=== PATIENT | male | born 1980 ===

== ENCOUNTER 2016-12-22 02:28 | Inpatient (IN) | payer SELFPAY ==
[2016-12-22 03:01] LABS: Urine Bilirubin Negative (Negative); Urine Glucose Negative (Negative); Urine Nitrite Negative (Negative)
[2016-12-22 03:02] LABS: Hematocrit 48 % (42-52); Mean Corpuscular HGB Conc 33 g/dl (31-36); Mean Corpuscular Hemoglobin 28 pg (27-31); Mean Corpuscular Volume 83 fL (80-94); Mean Platelet Volume 10 um3 (7.4-10.4); Red Blood Count 5.79 10^6/ul (4.0-5.4); Red Cell Distribution Width 15 % (10.5-15); White Blood Count 16.9 10^3/ul (3.5-10.8)
[2016-12-22 03:03] LABS: Comments Flag Yes
[2016-12-22 03:04] LABS: Add Diff/Slide Review? Slide Review Added
[2016-12-22 03:14] LABS: ALT 114 U/L (7-52); AST 46 U/L (13-39); Albumin 4.8 g/dL (3.2-5.2); Alkaline Phosphatase 95 U/L (34-104); Anion Gap 12 mmol/L (2-11); BUN/Creatinine Ratio 10.1 (8-20); Blood Urea Nitrogen 11 mg/dL (6-24); CO2 Carbon Dioxide 19 mmol/L (22-32); Calcium 9.3 mg/dL (8.6-10.3); Chloride 104 mmol/L (101-111); Globulin 3.3 g/dL (2-4); Glucose 115 mg/dL (70-100); Potassium 3.4 mmol/L (3.5-5.0); Sodium 135 mmol/L (133-145); Total Protein 8.1 g/dL (6.4-8.9)
[2016-12-22 03:15] LABS: Benzodiazepine Urine Screen None Detected (None Detect)
[2016-12-22 03:27] LABS: Acetaminophen < 15 mcg/mL; Alcohol 263 mg/dL (<10); Salicylate < 2.50 mg/dL (<30)
[2016-12-22 03:37] LABS: TSH (Thyroid Stimulating Horm) 1.33 mcIU/mL (0.34-5.60)
--- NOTE | 2016-12-22 06:41 | ED ---
Geoffrey Multani Billy, scribed for Shakir Peterson MD on 12/22/16 at 0612 . Psychiatric Complaint - HPI Summary HPI Summary: 36 year-old male coming to [facility] for a voluntary MHE. Patient reports vague suicidal ideation without any definite plans. He presents to the ED with clear signs of EtOH intoxication, and he states that he wants to speak to somebody for help. - History Of Current Complaint Chief Complaint: EDMentalHealth Time Seen by Provider: 12/22/16 03:04 Hx Obtained From: Patient Onset/Duration: Gradual Onset Timing: Constant Severity Initially: Moderate Severity Currently: Moderate Character: Depressed Aggravating Factor(s): Alcohol Use Alleviating Factor(s): Nothing Associated Signs And Symptoms: Positive: Negative Has Suicidal: Reports: Thoughts - Allergies/Home Medications Allergies/Adverse Reactions: Allergies Allergy/AdvReac Type Severity Reaction Status Date / Time No Known Allergies Allergy Verified 06/06/13 23:54 PMH/Surg Hx/FS Hx/Imm Hx Musculoskeletal History: Reports: Hx Back Problems - x1 year approximately, "twinge" Psychiatric History: Reports: Hx Anxiety, Hx Substance Abuse, Other Psychiatric Issues/Disorders - inpatient substance abuse treatment Denies: Hx Eating Disorder, Hx of Violent Episodes Against Others - Immunization History Date of Tetanus Vaccine: unknown Infectious Disease History: No Infectious Disease History: Denies: Traveled Outside the [place] in Last 30 Days - Family History Family History: Aunt with unclear mental health illness. - Social History Alcohol Use: Daily Alcohol Amount: recently Substance Use Type: Reports: Cocaine, Marijuana Substance Use Comment - Amount & Last Used: recently per pt Smoking Status (MU): Heavy Every Day Tobacco Smoker Review of Systems Neurological: Other - EtOH Psychological: Other - SI Positive: Depressed All Other Systems Reviewed And Are Negative: Yes Physical Exam Triage Information Reviewed: Yes Vital Signs On Initial Exam: Initial Vitals Temp Pulse Resp BP Pulse Ox 98.3 F 129 32 174/107 95 12/22/16 02:30 12/22/16 02:30 12/22/16 02:30 12/22/16 02:30 12/22/16 02:30 Vital Signs Reviewed: Yes Appearance: Positive: Well-Appearing, No Pain Distress Skin: Positive: Warm Head/Face: Positive: Normal Head/Face Inspection Eyes: Positive: NORMA ENT: Positive: Hearing grossly normal Neck: Positive: Supple Respiratory/Lung Sounds: Positive: Clear to Auscultation, Breath Sounds Present Cardiovascular: Positive: RRR Abdomen Description: Positive: Nontender, Soft Musculoskeletal: Positive: Strength/ROM Intact Neurological: Positive: Alert, Oriented to Person Place, Time - Lexx Coma Scale Coma Scale Total: 15 Diagnostics - Vital Signs Vital Signs Temp Pulse Resp BP Pulse Ox 12/22/16 02:54 97.7 F 129 23 174/107 96 12/22/16 02:30 98.3 F 129 32 174/107 95 - Laboratory Lab Results: Lab Results 12/22/16 12/22/16 12/22/16 Range/Units 02:50 02:50 02:50 WBC 16.9 H (3.5-10.8) 10^3/ul RBC 5.79 H (4.0-5.4) 10^6/ul Hgb 16.0 (14.0-18.0) g/dl Hct 48 (42-52) % MCV 83 (80-94) fL MCH 28 (27-31) pg MCHC 33 (31-36) g/dl RDW 15 (10.5-15) % Plt Count 254 (150-450) 10^3/ul MPV 10 (7.4-10.4) um3 Neut % (Auto) 80.2 (38-83) % Lymph % (Auto) 14.4 L (25-47) % Baxter % (Auto) 3.8 (1-9) % Eos % (Auto) 0.1 (0-6) % Baso % (Auto) 1.5 (0-2) % Absolute Neuts (auto) 13.6 H (1.5-7.7) 10^3/ul Absolute Lymphs (auto) 2.4 (1.0-4.8) 10^3/ul Absolute Monos (auto) 0.6 (0-0.8) 10^3/ul Absolute Eos (auto) 0 (0-0.6) 10^3/ul Absolute Basos (auto) 0.3 H (0-0.2) 10^3/ul Absolute Nucleated RBC 0 10^3/ul Nucleated RBC % 0 Sodium 135 (133-145) mmol/L Potassium 3.4 L (3.5-5.0) mmol/L Chloride 104 (101-111) mmol/L Carbon Dioxide 19 L (22-32) mmol/L Anion Gap 12 H (2-11) mmol/L BUN 11 (6-24) mg/dL Creatinine 1.09 (0.67-1.17) mg/dL Est GFR ( Amer) 99.0 (>60) Est GFR (Non-Af Amer) 77.0 (>60) BUN/Creatinine Ratio 10.1 (8-20) Glucose 115 H (70-100) mg/dL Calcium 9.3 (8.6-10.3) mg/dL Total Bilirubin 0.30 (0.2-1.0) mg/dL AST 46 H (13-39) U/L ALT 114 H (7-52) U/L Alkaline Phosphatase 95 (34-104) U/L Total Protein 8.1 (6.4-8.9) g/dL Albumin 4.8 (3.2-5.2) g/dL Globulin 3.3 (2-4) g/dL Albumin/Globulin Ratio 1.5 (1-3) TSH 1.33 (0.34-5.60) mcIU/mL Urine Color Colorless Urine Appearance Clear Urine pH 6.0 (5-9) Ur Specific [place] 1.001 L (1.010-1.030) Urine Protein Negative (Negative) Urine Ketones Negative (Negative) Urine Blood Negative (Negative) Urine Nitrate Negative (Negative) Urine Bilirubin Negative (Negative) Urine Urobilinogen Negative (Negative) Ur Leukocyte Esterase Negative (Negative) Urine Glucose Negative (Negative) Salicylates < 2.50 (<30) mg/dL Urine Opiates Screen (None Detect) Acetaminophen < 15 mcg/mL Ur Barbiturates Screen (None Detect) Ur Phencyclidine Scrn (None Detect) Ur Amphetamines Screen (None Detect) U Benzodiazepines Scrn (None Detect) Urine Cocaine Screen (None Detect) U Cannabinoids Screen (None Detect) Serum Alcohol 263 H (<10) mg/dL 12/22/16 Range/Units 02:50 WBC (3.5-10.8) 10^3/ul RBC (4.0-5.4) 10^6/ul Hgb (14.0-18.0) g/dl Hct (42-52) % MCV (80-94) fL MCH (27-31) pg MCHC (31-36) g/dl RDW (10.5-15) % Plt Count (150-450) 10^3/ul MPV (7.4-10.4) um3 Neut % (Auto) (38-83) % Lymph % (Auto) (25-47) % Baxter % (Auto) (1-9) % Eos % (Auto) (0-6) % Baso % (Auto) (0-2) % Absolute Neuts (auto) (1.5-7.7) 10^3/ul Absolute Lymphs (auto) (1.0-4.8) 10^3/ul Absolute Monos (auto) (0-0.8) 10^3/ul Absolute Eos (auto) (0-0.6) 10^3/ul Absolute Basos (auto) (0-0.2) 10^3/ul Absolute Nucleated RBC 10^3/ul Nucleated RBC % Sodium (133-145) mmol/L Potassium (3.5-5.0) mmol/L Chloride (101-111) mmol/L Carbon Dioxide (22-32) mmol/L Anion Gap (2-11) mmol/L BUN (6-24) mg/dL Creatinine (0.67-1.17) mg/dL Est GFR ( Amer) (>60) Est GFR (Non-Af Amer) (>60) BUN/Creatinine Ratio (8-20) Glucose (70-100) mg/dL Calcium (8.6-10.3) mg/dL Total Bilirubin (0.2-1.0) mg/dL AST (13-39) U/L ALT (7-52) U/L Alkaline Phosphatase (34-104) U/L Total Protein (6.4-8.9) g/dL Albumin (3.2-5.2) g/dL Globulin (2-4) g/dL Albumin/Globulin Ratio (1-3) TSH (0.34-5.60) mcIU/mL Urine Color Urine Appearance Urine pH (5-9) Ur Specific [place]ram (1.010-1.030) Urine Protein (Negative) Urine Ketones (Negative) Urine Blood (Negative) Urine Nitrate (Negative) Urine Bilirubin (Negative) Urine Urobilinogen (Negative) Ur Leukocyte Esterase (Negative) Urine Glucose (Negative) Salicylates (<30) mg/dL Urine Opiates Screen None detected (None Detect) Acetaminophen mcg/mL Ur Barbiturates Screen None detected (None Detect) Ur Phencyclidine Scrn None detected (None Detect) Ur Amphetamines Screen None detected (None Detect) U Benzodiazepines Scrn None detected (None Detect) Urine Cocaine Screen None detected (None Detect) U Cannabinoids Screen None detected (None Detect) Serum Alcohol (<10) mg/dL Result Diagrams: 12/22/16 02:50 12/22/16 02:50 Lab Statement: Any lab studies that have been ordered have been reviewed, and results considered in the medical decision making process. Course/Dx - Differential Dx/Clinical Impression Provider Diagnosis: Suicidal ideations - Physician Notifications Instructed by Provider To: Admit As Inpatient Discharge - Discharge Plan Condition: Fair Disposition: ADMITTED TO [facility] documentation as recorded by the Geoffrey oswald Billy accurately reflects the service I personally performed and the decisions made by me, Shakir Peterson MD.
[2016-12-23] MEDS ORDERED: Nicotine Inhaler* 10 MG AMP INH PRN (12:45)
[2016-12-23] MEDS ORDERED: diPHENhydraMINE PO* 50 MG PO PRN (12:46)
--- NOTE | 2016-12-24 10:04 | RAD ---
INDICATION: Right middle finger trauma. TECHNIQUE: 3 views of the right middle finger were obtained. FINDINGS: There is mild extension at the proximal interphalangeal joint and flexion at the distal interphalangeal joint. No fracture is seen. Joint spaces appear maintained. IMPRESSION: SWAN NECK DEFORMITY, NO FRACTURE IS SEEN.
--- NOTE | 2016-12-24 10:24 | HP ---
DATE OF ADMISSION: 12/23/16 IDENTIFYING DATA: Marcio Sloan is a 36-year-old domiciled employed male with a history of prior psychiatric hospitalization, alcohol use disorder, remote history of self-injury. He is admitted to the psychiatric unit on a voluntary basis after being brought to the hospital emergency room by ambulance after he told a police liaison he was feeling suicidal. HISTORY OF PRESENT ILLNESS: Marcio was last admitted to our psychiatric unit in May 2013. He was referred for follow up at [facility]. He reports "not much" in the way of follow up. He said he felt well after the hospitalization and dropped out of treatment. He stopped taking medication (Zoloft), and was sober for about six months. He said that alcohol problems have been "on and off" since then. He denies having any interventions. He said the consequences have included "legal problems" after he was frustrated that he couldn't purchase alcohol from a store after 1 o'clock and stole it instead. He denies symptoms of a major depressive episode. Specifically, he denies unremitting sad mood, anhedonia, persistent helplessness or hopelessness, or any experiences he identifies as wishes. He reports persistent sleep quality with poor hygiene, taking naps, and says his energy is "sub par." He said one of the reasons he expressed suicidal thoughts to the police liaison was that he wanted to "get out of police contact." In the ER he was a little guarded, and denied ongoing suicidal thoughts. Collateral information that came from his family was supportive of his safety outside the hospital setting. He denies manic symptoms. He denies psychotic symptoms. He denies any violence or violent ideation. He denies anxiety syndromes. He reports drinking alcohol several times a week, up to 15 beers each time, to intoxication and with negative subjective consequences. He denies periods of shakiness when not drinking, or history of serious withdrawal symptoms. He reports using marijuana occasionally, and denies the use of other illicit substances. He said he was happy he was admitted to the psychiatric unit, but is hopeful for a brief stay both because he's not insured and, based on his subjective needs, he would like to spend another day in the hospital. He denied new health problems other than having injured his right middle finger at a birthday alliance party. He said he self-treated and put a splint on. He was ambivalent about getting x-rays based on the concern of cost, but agreed that it was appropriate. He recognized his main problem as drinking and, after review of his options, elected a trial of Antabuse after we reviewed the side effects and safety profile of that medication. He was somewhat ambivalent about accepting referrals for outpatient mental health or substance counseling follow up, preferring to do it on his own but "with Antabuse." PREVIOUS PSYCHIATRIC HISTORY: One hospitalization at our facility in 2012 where he presented with depressive symptoms in the setting of uncontrolled alcohol use. He's had little outpatient mental health follow up. He was referred to [facility] and apparently made contact with them again briefly a couple of years ago. Prior to his first hospitalization here, he had not interacted with the mental health system. At age 14, he contemplated suicide and did not act on it. He had an instance of self-injury in the remote past in which he cut his left arm in the setting of emotional stress of a break-up with a girlfriend. He denies a history of violence but has been in some fights when drinking. He denies a history of manic or psychotic symptoms. He reported meeting his developmental milestones on time. He denied a learning disorder or childhood behavioral difficulties. He denies anxiety syndromes and generally gets anxious under situational problems. MEDICAL HISTORY: No chronic illnesses, recent right middle finger trauma. OUTPATIENT MEDICATIONS: None. ALLERGIES: No known drug allergies. FAMILY PSYCHIATRIC HISTORY: An aunt has an unclear mental illness. He denied suicidal behavior in the family. ABUSE HISTORY: Denied. LEGAL HISTORY: Arrested for trespassing in [place] while intoxicated and for taking alcohol without paying in the last few years. SUBSTANCE USE HISTORY: Alcohol has been a chronic problem. He was in rehab at [facility] in his 20s, and attained five years of sobriety. Consequences have included legal problems, isolation, fights. He denies any history of mandeep medically serious withdrawal, DTs or seizures. He reports occasional marijuana use and denies the use of other illicit substances. He reports between a pack a week or a pack a day of smoking cigarettes. SOCIAL HISTORY: He is from the [facility]. He resides alone in the vicinity of his sister and mother. His brother is also involved in his life. His parents are . 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 He has reported having some friends. He identifies as heterosexual, and previously was sexually active in a way that was satisfactory for him. He has no children of his own. Leisure activities include interest in sports and playing video games and reading. MENTAL STATUS EXAMINATION: Heavy-set, middle-aged, male who is fairly well-kempt in hospital clothing. He has normal psychomotor activity. He 's pleasant, polite and cooperative. He maintains good eye contact. Speech is spontaneous and unpressured. Mood is described as "okay." Affect is mildly dysphoric; it's stable and doesn't really brighten. Thought process is coherent. Thought content is negative for current suicidal, homicidal or paranoid ideation. Sensorium is clear. He's alert and oriented x3. Insight and judgment is fair to good. Impulse control is intact. PHYSICAL ASSESSMENT: Vital signs - temperature 98.3, blood pressure 133/96, pulse 77, respiratory rate 16. ADMISSION LABORATORY STUDIES: CBC - WBC 16.9, RBC 5.79, 14.4% lymphocytes, 13.6 absolute neutrophils, 0.3 absolute basophils. Comprehensive panel - potassium 3.4, carbon dioxide 19, anion gap 12, glucose 115, AST 46, ALT 114. Urinalysis - specific gravity 1.001. Toxicology screen - alcohol level of 263, negative for Tylenol or salicylates. Urine drug screen negative. REVIEW OF SYSTEMS: Negative for seizures, neurologic symptoms, respiratory difficulty, chest pain, syncope, gastrointestinal distress, elimination symptoms , or skin problems. Musculoskeletal - reports a recent right middle finger trauma which he's evaluated as either a fracture of dislocation (did not seek medical attention), and for which he put on a splint. PHYSICAL EXAM: Declined exam citing lack of subjective need. This is a reasonable refusal in a healthy person. He has right middle finger trauma that merits an x- ray, and has liver function tests consistent with his use of alcohol. He's been medically cleared for psychiatric hospitalization. Only follow up required is the x-ray. CLINICAL SUMMARY: Second psychiatric hospitalization for a 36-year-old male with a history of chronic alcohol use disorder and mental health sequelae with a distant history of self-injury and a [id number] of depression. He presented in crisis having interacted with law enforcement and expressed suicidal thoughts. There appears to be no subacute suicidal behavior or ideation, nor does he appear to be in a major mood episode. It sounds like he gets dysphoric at times when drinking, and he identifies alcohol use as an uncontrolled problem at this time. He merits psychiatric hospitalization for stabilization which is already underway. I do anticipate a brief hospitalization in keeping with his preference is going to be appropriate, and am planning for his release 12/25. ADMISSION DIAGNOSIS: Alcohol use disorder with induced mood symptoms, onset during intoxication. TREATMENT PLAN: Admit to psychiatric unit on a voluntary basis. Code status is full. Safety checks are 15-minute intervals and can advance to 30-minute intervals at this time. Initiate comprehensive group milieu and individual psychotherapeutic supports. Medication management will involve treatment with Disulfiram for alcohol use disorder starting now. Estimated length of stay is two days. Further evaluation includes x-ray of the right middle finger. Patient's strengths are his intact intellectual functioning, good baseline health, supportive family. Discharge planning will involved effort to refer to appropriate after care, although it appears that the patient may decline the referrals. [id number]/[facility] #: [id number] LUIS ANGEL
[2016-12-24] MEDS: Disulfiram TAB* 250 MG PO SCH (10:27)
--- NOTE | 2016-12-24 11:24 | PN ---
Progress Note - Progress Note Note: R middle finger Xray result: no fracture, Lynx neck deformity no acute intervention needed.
[2016-12-25 08:03] VITALS: BP 137/95
[2016-12-25] MEDS: Disulfiram TAB* 250 MG PO SCH (12:02)
--- NOTE | 2016-12-25 14:09 | DS ---
Subjective - Subjective Service Types: 88199 Hosp CO Day Mgmt simple under 30 min Discharge Date: 12/25/16 Subjective: Marcio continues to report that his SI was only brief and without plan under the influence of alcohol. He requests discharge from this voluntary admission. It had been the plan of Dr Veliz, for whom I am covering care of Marcio, to discharge Marcio from the hospital today. After meeting with Marcio and learning that he has no dangerous intent or plan and a clear plan to establish and maintain sobriety, I agree with this plan to discharge today. Marcio has no physical complaints. He had no withdrawal symptoms from his brief alcohol binge. Objective - Appearance Appearance: Healthy Appearing Dysmorphic Features: No Hygiene: Normal Grooming: Well Kept - Behavior Psychomotor Activities: Normal Exhibits Abnormal Movement: No - Attitude and Relatedness Attitude and Relatedness: Well Related Eye Contact: Good - Speech Quality: Unpressured Latencies: Normal Quantity: Appropriate - Mood Patient's Decription of Mood: "Good" - "Positive" - Affect Observed Affect: Good Affect Consistent with: Euthymia - Thought Process Patient's Thought Process: Coherent, Goal Directed Thought Content: No Passive Wish, No Suicidal Planning, No Homicidal Ideation, No Paranoid Ideation - Sensorium Experiencing Hallucinations: No, Sensorium is Clear Type of Hallucinations: Visual: No, Auditory: No, Command: No - Level of Consciousness Level of Consciousness: Alert Orientation: Yes Intact, Yes Orientated to Time, Yes Orientated to Place, Yes Orientated to Person - Impulse Control Impulse Control: Intact - Insight and Judgement Insight and Judgement: Fair - Group Participation Particating in Group Activities: Yes - Medication Management Medication Management Adherence: Yes Treatment Course & Assessment Clinical Course & Impression: Marcio is a 36 year-old man admitted for safety, assessment and treatment after stating SI that he might want to jump into a river when speaking with police at bar closing time in [facility]. He has since been clear in his report that he had no true intent or plan to harm himself when making that statement. He has identified alcohol use disorder as a primary issue, but he has declined referral to rehab programs, stating that he does better with AA. He has started Antabuse. Marcio made good use of the therapeutic milieu and groups. He was med compliant. He has been pleasant and collaborative throughout his brief hospitalization. Marcio is cleared for discharge, assessed as at no acutely increased risk of harm to self or others and capable of adequate self-care to avoid harm. He has requested referral to [facility] for followup care. Merits Inpatient Hospitalization: No Clear for Discharge: Adequate Clinical Respons, Acceptable Safety Profile, Low Utility of Inpt Care Inpatient DSM-IV Dx: Alcohol use disorder with induced mood symptoms, onset during intoxication - Rome II MR and Personality Disorder: deferred - Rome III Medical Illness: Recent R middle finger trauma - Rome IV Stressors: consequences of alcohol use Family: supportive Primary Support Group: family - Rome V ADW-[id number]-[id number]: 70 Estimate of Highest-Past Year: 70 Discharge Planning - Discharge Planning Discharge Plan: Outpatient Follow Up Outpatient Program: [facility] Recommendations for Continuing Care: Medication Management, Psychotherapy Medications: Disulfiram (Antabuse Tab*) 250 mg PO DAILY ELSIE Last Admin: 12/25/16 12:02 Dose: 250 mg, #30, 0 refills Nicotine gum, 2 mg/piece, q2h prn cravings, #180, 0 refills. Discharge Planning: Prescriptions provided for discharge [x] Yes [] No Follow up care details as per social work arrangements. Patient response to discharge plan: [x] eager for discharge [x] agreeable with discharge plan [] ambivalent about discharge [] disagrees with discharge today
== END 2016-12-25 14:30 | disposition home or self-care (01) | DRG 897 ==
LOC: ED 02:28 → BSU 12-23 12:45
PROVIDERS: ADMIT Psychiatry & Neurology Psychiatry; ATTEND Psychiatry & Neurology Psychiatry
DX: F10.14 Alcohol abuse with alcohol-induced mood disorder (principal); R45.851 Suicidal ideations; Y90.8 Blood alcohol level of 240 mg/100 ml or more; F10.129 Alcohol abuse with intoxication, unspecified; F17.210 Nicotine dependence, cigarettes, uncomplicated; S69.91XA Unspecified injury of right wrist, hand and finger(s), initial encounter; X58.XXXA Exposure to other specified factors, initial encounter; Y92.9 Unspecified place or not applicable
CPT/HCPCS: 36415; 73140; 80053; 80307; 80320; 80329; 81003; 84443; 85025; 99222; 99238; A9270-GY; G0480

== ENCOUNTER 2018-05-19 02:02 | Emergency (ER) | payer SELFPAY ==
--- NOTE | 2018-05-19 03:03 | ED ---
Substance Abuse/Use - HPI Summary HPI Summary: Complete HPI unobtainable due to level 5 caveat of substance abuse. Pt is 38 y/ o M BIBA to [facility] due to substance abuse. He called the police because he believed he had a warrant out for his arrest in [place]. When they arrived he told them he had to go to the hospital because of cocaine and alcohol abuse. Denies having any pain. - History Of Current Complaint Chief Complaint: EDSubstanceAbuse Stated Complaint: 2208 Time Seen by Provider: 05/19/18 02:32 Hx Obtained From: Patient Hx From Patient Unobtainable Due To: Altered Mental Status Ingestion History: Type/Name Of Drug - Cocaine, ETOH Aggravating Factor(s): Nothing Alleviating Factor(s): Nothing - Allergies/Home Medications Allergies/Adverse Reactions: Allergies Allergy/AdvReac Type Severity Reaction Status Date / Time No Known Allergies Allergy Verified 05/19/18 02:12 Home Medications: Home Medications NK [No Home Medications Reported] 05/19/18 [History Confirmed 05/19/18] PMH/Surg Hx/FS Hx/Imm Hx Musculoskeletal History: Reports: Hx Back Problems - x1 year approximately, "twinge" Sensory History: Denies: Hx Contacts or Glasses, Hx Hearing Aid Opthamlomology History: Denies: Hx Contacts or Glasses Psychiatric History: Reports: Hx Anxiety, Hx Inpatient Treatment, Hx Community Mental Health Tx, Hx Substance Abuse, Other Psychiatric Issues/Disorders - inpatient substance abuse treatment Denies: Hx Eating Disorder, Hx of Violent Episodes Against Others - Immunization History Date of Tetanus Vaccine: unknown Infectious Disease History: No Infectious Disease History: Denies: Traveled Outside the [place] in Last 30 Days - Family History Known Family History: Positive: Other - Aunt with unclear mental health illness - Social History Alcohol Use: Daily Alcohol Amount: recently Substance Use Type: Reports: Cocaine, Marijuana Substance Use Comment - Amount & Last Used: recently per pt Smoking Status (MU): Heavy Every Day Tobacco Smoker Type: Cigarettes Review of Systems - ROS Summary Review of Systems Summary: Complete ROS unobtainable due to level 5 caveat of altered mental status due to substance abuse. All Other Systems Reviewed And Are Negative: Yes Physical Exam - Summary Physical Exam Summary: Appearance: Well-appearing, Well-nourished, lying in bed comfortable Skin: Warm, dry, no obvious rash Eyes: sclera anicteric, no conjunctival pallor ENT: mucous membranes moist Neck: deferred Respiratory: No signs of respiratory distress Cardiovascular: Appears well perfused, pulses are nml Abdomen: deferred Musculoskeletal: Moving all 4 extremities without obvious discomfort Neurological: Awake and alert, mentation is normal, speech is fluent and appropriate Psychiatric: affect is normal, does not appear anxious or depressed Triage Information Reviewed: Yes Vital Signs On Initial Exam: Initial Vitals Temp Pulse Resp BP Pulse Ox 98.1 F 123 20 142/118 95 05/19/18 02:07 05/19/18 02:07 05/19/18 02:07 05/19/18 02:07 05/19/18 02:07 Vital Signs Reviewed: Yes Diagnostics - Vital Signs Vital Signs Temp Pulse Resp BP Pulse Ox 05/19/18 02:07 98.1 F 123 20 142/118 95 - Laboratory Result Diagrams: 05/19/18 03:00 05/19/18 03:00 Lab Statement: Any lab studies that have been ordered have been reviewed, and results considered in the medical decision making process. - EKG 03:03 Cardiac Rate: Tachycardia - 102 bpm EKG Rhythm: Sinus Tachycardia Course/Dx - Diagnoses Differential Diagnosis/HQI/PQRI: Positive: Alcohol Abuse Provider Diagnoses: Alcohol abuse, Cocaine abuse Discharge - Sign-Out/Discharge Documenting (check all that apply): Patient Departure - Discharge Plan Condition: Guarded Disposition: HOME Patient Education Materials: Polysubstance Abuse (ED) Referrals: No Primary Care Phys,NOPCP [Primary Care Provider] - [facility] [Outside] [facility] [Outside] [facility] [Outside] - Billing Disposition and Condition Condition: GUARDED Disposition: Home - Attestation Statements Document Initiated by Scribe: Yes Documenting Scribe: Rodolfo Mayo Provider For Whom Candice is Documenting (Include Credential): Dayron Bellamy MD Scribe Attestation: Rodolfo Multani scribed for Dayron Bellamy MD on 05/20/18 at 0411. Scribe Documentation Reviewed: Yes Provider Attestation: The documentation as recorded by the [email or web address] accurately reflects the service I personally performed and the decisions made by me, Dayron Bellamy MD
[2018-05-19 03:07] LABS: ABS Basophils 0.1 10^3/ul (0-0.2); ABS Eosinophils 0 10^3/ul (0-0.6); ABS Monocytes 0.8 10^3/ul (0-0.8); ABS Neutrophils 8.7 10^3/ul (1.5-7.7); ABS Nucleated RBC 0 10^3/ul; Eosinophil % 0.1 % (0-6); Hematocrit 47 % (42-52); Hemoglobin 15.8 g/dl (14.0-18.0); Lymphocyte % 29.3 % (25-47); Mean Corpuscular HGB Conc 34 g/dl (31-36); Mean Corpuscular Hemoglobin 28 pg (27-31); Mean Corpuscular Volume 81 fL (80-94); Mean Platelet Volume 9.2 um3 (7.4-10.4); Nucleated Red Blood Cells % 0.2; Platelet Count 293 10^3/ul (150-450); Red Blood Count 5.75 10^6/ul (4.00-5.40); Red Cell Distribution Width 15 % (10.5-15); White Blood Count 13.6 10^3/ul (3.5-10.8)
[2018-05-19 03:27] LABS: EGFR Non-African American 72.3 (>60)
[2018-05-19 08:08] VITALS: BP 158/100
--- NOTE | 2018-05-24 02:33 | ED ---
Course/Dx - Diagnoses Provider Diagnoses: Alcohol abuse, Cocaine abuse Discharge - Sign-Out/Discharge Documenting (check all that apply): Patient Departure - Discharge Plan Condition: Stable Disposition: HOME Patient Education Materials: Polysubstance Abuse (ED) Referrals: [facility] [Outside] [facility] [Outside] [facility] [Outside] No Primary Care Phys,NOPCP [Primary Care Provider] - - Billing Disposition and Condition Condition: STABLE Disposition: Home
== END 2018-05-19 08:08 | disposition home or self-care (01) ==
LOC: ED 02:02
DX: F10.10 Alcohol abuse, uncomplicated (principal); F14.10 Cocaine abuse, uncomplicated; R00.0 Tachycardia, unspecified; F17.210 Nicotine dependence, cigarettes, uncomplicated
CPT/HCPCS: 36415; 80053; 80307; 80320; 84484; 85025; 93005; 99283; G0480